=== PATIENT | female | born 1990 | race Caucasian/White ===

== ENCOUNTER 2016-09-24 21:30 | Emergency (ER) | payer SELFPAY ==
[~2016-09-24] VITALS: Ht 162.6 cm; Wt 81.6 kg
[2016-09-24 21:38] VITALS: BP 112/69
[2016-09-24] MEDS ORDERED: NAPROXEN 500 MG TABLET PO ONE (21:45)
[2016-09-24] MEDS ORDERED: HYDROcodone/APAP 5/325MG 1 TAB TABLET PO ONE (21:45)
[2016-09-24] MEDS ORDERED: NAPR500T8 PO (21:57)
[2016-09-24] MEDS ORDERED: ACET-704 PO (21:57)
--- NOTE | 2016-09-24 21:59 | PHYS DOC ---
Past Medical History Past Medical History: Anxiety, Asthma, Bipolar, Other Additional Past Medical Histor: ADHD; ODD; Disassociated Identity Disorder, PANIC ATTACKS,HYPOGLYCEMIA Past Surgical History: Other Additional Past Surgical Histo: left eye for lazy eye Alcohol Use: Occasionally Drug Use: Marijuana Adult General Chief Complaint Chief Complaint: LOWEREXTREMITY INJURY HPI HPI Patient is a 26 year old female with history of asthma anxiety and bipolar who presents today with moderate right lateral ankle pain that began today when she was walking down some steps and rolled her ankle medially. Patient denies falling. Review of Systems Review of Systems Constitutional: Denies fever or chills [] Eyes: Denies change in visual acuity, redness, or eye pain [] Musculoskeletal: moderate right lateral ankle Integument: Denies rash or skin lesions [] Neurologic: Denies headache, focal weakness or sensory changes [] Endocrine: Denies polyuria or polydipsia [] Current Medications Current Medications Current Medications Medications (Trade) Dose Ordered Sig/Norman Start Time Stop Time Status Last Admin Dose Admin Acetaminophen/ Hydrocodone Bitart (Lortab 5/325) 1 tab 1X ONCE 09/24/16 21:45 09/24/16 21:46 DC 09/24/16 22:04 1 TAB Naproxen (Naprosyn) 500 mg 1X ONCE 09/24/16 21:45 09/24/16 21:46 DC 09/24/16 22:04 500 MG Allergies Allergies Allergies Coded Allergies Type Severity Reaction Last Updated Verified Lim Allergy Intermediate rash 09/24/16 No ceftriaxone Allergy Intermediate hives 09/24/16 No strawberry Allergy Intermediate swelling 09/24/16 No egg yolk Allergy Unknown 09/24/16 No solis Allergy Unknown 09/24/16 No Physical Exam Physical Exam Constitutional: Well developed, well nourished, no acute distress, non-toxic appearance. [] HENT: Normocephalic, atraumatic, bilateral external ears normal, oropharynx moist, no oral exudates, nose normal. [] Skin: Warm, dry, no erythema, no rash. [] Back: No tenderness, no CVA tenderness. [] Extremities: Right ankle with mild amount of soft tissue swelling on the lateral aspect. Tenderness on palpation of the right lateral ankle. Slightly Limited range of motion to the right ankle due to pain. Patient able to flex and extend the right foot. +2 right pedal pulse. Cap refill less than 2 seconds the right lower extremity. Sensation intact to the right lower extremity. Neurologic: Alert and oriented X 3, normal motor function, normal sensory function, no focal deficits noted. [] Psychologic: Affect normal, judgement normal, mood normal. [] Current Patient Data Vital Signs Vital Signs Date Time Temp Pulse Resp B/P (MAP) Pulse Ox O2 Delivery O2 Flow Rate FiO2 09/24/16 21:38 97.8 88 18 100 Room Air 97.8 EKG EKG [] Radiology/Procedures Radiology/Procedures [] Course & Med Decision Making Course & Med Decision Making Pertinent Labs and Imaging studies reviewed. (See chart for details) Patient is in the ED with right ankle pain that began after she rolled her ankle walking down some steps. Right ankle x-rays interpreted by Dr. Aguillon and negative for any acute findings. Patient be discharged with instructions to ice and elevate the extremity. Jovany wrap applied to the ankle. Follow-up with orthopedic doctor in one week. Dragon Disclaimer Dragon Disclaimer This electronic medical record was generated, in whole or in part, using a voice recognition dictation system. Departure Departure Impression: Primary Impression: Ankle sprain Disposition: HOME, SELF-CARE Condition: STABLE Referrals: NO PCP (PCP) SB VANESSA MD follow in one week with the doctor provided Patient Instructions: Ankle Sprain Additional Instructions: You were was seen for right ankle sprain. Ice and elevate the extremity. Take the prescribed pain medicine as needed for pain. Wear the air cast or jovany wrap as tolerated. Follow-up with the provided orthopedic doctor in one week if pain continues. Scripts Naproxen (NAPROXEN) 500 Mg Tablet.dr 1 TAB PO BID, #60 TAB 2 Refills Prov: JERAMIE COOPER APRN 09/24/16 Acetaminophen With Codeine (TYLENOL WITH CODEINE #3 TABLET) 1 Each Tablet 1 TAB PO PRN Q6HRS Y for PAIN, #30 TAB Prov: JERAMIE COOPER APRN 09/24/16 Problem Qualifiers Primary Impression: Ankle sprain Encounter type: initial encounter Involved ligament of ankle: unspecified ligament Laterality: right Qualified Codes: S93.401A - Sprain of unspecified ligament of right ankle, initial encounter JERAMIE COOPER APRN Sep 24, 2016 21:59
--- NOTE | 2016-09-25 07:31 | RAD ---
Right ankle, 3 views, 09/24/2016: History: Ankle injury There is mild soft tissue swelling laterally. No fracture or dislocation is identified. IMPRESSION: No acute bony abnormality is detected.
== END 2016-09-24 22:11 | disposition home or self-care (01) ==
LOC: ER 21:30
DX: S93.401A Sprain of unspecified ligament of right ankle, initial encounter (principal); J45.909 Unspecified asthma, uncomplicated; F90.9 Attention-deficit hyperactivity disorder, unspecified type; X50.9XXA Other and unspecified overexertion or strenuous movements or postures, initial encounter; Y93.01 Activity, walking, marching and hiking; Y92.89 Other specified places as the place of occurrence of the external cause; Y99.8 Other external cause status
CPT/HCPCS: 73610; 99284-25

== ENCOUNTER 2017-07-04 19:25 | Emergency (ER) | payer SELFPAY ==
[2017-07-04] MEDS: IOHEXOL 300 MG/ML 100ML VIAL. IV (19:45)
[2017-07-04 19:53] LABS: ADD MAN DIFF? NO
[2017-07-04 19:56] LABS: BASO # 0.1 x10^3/uL (0.0-0.2); BASO % 0 % (0-3); EOS # 0.2 x10^3/uL (0.0-0.7); EOS % 2 % (0-3); HEMATOCRIT 41.9 % (36.0-47.0); HEMOGLOBIN 14.3 g/dL (12.0-15.5); LYMPH # 2.3 x10^3/uL (1.0-4.8); LYMPH % 19 % (24-48); MEAN CORPUSCULAR HEMOGLOBIN 30 pg (25-35); MEAN CORPUSCULAR HGB CONC 34 g/dL (31-37); MEAN CORPUSCULAR VOLUME 88 fL (79-100); MONO # 0.8 x10^3/uL (0.0-1.1); MONO % 6 % (0-9); NEUT # 9.1 x10^3uL (1.8-7.7); NEUT % 73 % (31-73); PLATELET COUNT 328 x10^3/uL (140-400); RED BLOOD COUNT 4.78 x10^6/uL (3.50-5.40); RED CELL DISTRIBUTION WIDTH 14.4 % (11.5-14.5); WHITE BLOOD COUNT 12.4 x10^3/uL (4.0-11.0)
[2017-07-04] MEDS ORDERED: CONTRAST GIVEN MC (20:00)
[2017-07-04] MEDS: fentaNYL PF VIAL 100 MCG/2 ML VIAL IV (20:04)
[2017-07-04 20:05] LABS: ANION GAP 8 (6-14); BLOOD UREA NITROGEN 9 mg/dL (7-20); BUN/CREATININE RATIO 11 (6-20); CALCIUM 9.3 mg/dL (8.5-10.1); CARBON DIOXIDE 27 mmol/L (21-32); CHLORIDE 103 mmol/L (98-107); CREATININE 0.8 mg/dL (0.6-1.0); GFR 86.7; GLUCOSE 92 mg/dL (70-99); POTASSIUM 3.7 mmol/L (3.5-5.1); PROTHROMBIN TIME PATIENT 12.8 SEC (11.7-14.0); SODIUM 138 mmol/L (136-145)
[2017-07-04 20:06] LABS: PARTIAL THROMBOPLASTIN TIME 27 SEC (24-38)
[2017-07-04 20:07] LABS: ETHANOL < 10 mg/dL (0-10)
[2017-07-04 20:10] LABS: ALBUMIN 4.1 g/dL (3.4-5.0); ALK PHOS 105 U/L (46-116); ALT (SGPT) 15 U/L (14-59); AST (SGOT) 13 U/L (15-37); LIPASE 123 U/L (73-393); MAGNESIUM 2.1 mg/dL (1.8-2.4); TOTAL BILIRUBIN 0.2 mg/dL (0.2-1.0); TOTAL PROTEIN 8.2 g/dL (6.4-8.2)
[2017-07-04] MEDS ORDERED: ONDANSETRON PF 4 MG/2 ML VIAL. (20:33)
[2017-07-04] MEDS: ONDANSETRON PF 4 MG/2 ML VIAL. IV (20:35)
[2017-07-04] MEDS: DIPHTH,PERTUSS(ACELL),TET TOX 0.5 ML DISP.SYRIN. VAX IM (21:01)
== END 2017-07-04 22:23 | disposition home or self-care (01) ==
LOC: ER 19:25
DX: S16.1XXA Strain of muscle, fascia and tendon at neck level, initial encounter (principal); S83.91XA Sprain of unspecified site of right knee, initial encounter; S93.401A Sprain of unspecified ligament of right ankle, initial encounter; S70.211A Abrasion, right hip, initial encounter; S09.90XA Unspecified injury of head, initial encounter; M54.5 Low back pain; M54.6 Pain in thoracic spine; F41.0 Panic disorder [episodic paroxysmal anxiety]; J45.909 Unspecified asthma, uncomplicated; F31.9 Bipolar disorder, unspecified; F90.9 Attention-deficit hyperactivity disorder, unspecified type; F12.10 Cannabis abuse, uncomplicated; F91.3 Oppositional defiant disorder; Z88.1 Allergy status to other antibiotic agents; Z91.012 Allergy to eggs; Z91.018 Allergy to other foods; V47.5XXA Car driver injured in collision with fixed or stationary object in traffic accident, initial encounter; Y93.I9 Activity, other involving external motion; Y92.410 Unspecified street and highway as the place of occurrence of the external cause; Y99.8 Other external cause status
CPT/HCPCS: 36415; 70450; 71260; 72125; 73562; 73610; 74177; 80053; 83690; 83735; 85025; 85610; 85730; 86850; 86900; 86901; 90471; 90715; 96374; 96375; 99285-25; G0480; J2405; J3010; Q9967

== ENCOUNTER 2018-01-26 21:00 | Emergency (ER) | payer SELFPAY ==
[~2018-01-26] VITALS: Ht 165.1 cm; Wt 88.9 kg
[~2018-01-26 21:00] MED LIST: ACET-704 PO; HYDR-971 PO; NAPR500T8 PO; ONDA4TAB10 PO
[2018-01-26 21:50] LABS: BILIRUBIN,URINE NEGATIVE (NEG); CLARITY,URINE CLOUDY; COLOR,URINE YELLOW; NITRITE,URINE NEGATIVE (NEG); PROTEIN,URINE NEGATIVE (NEG-TRACE)
[2018-01-26 21:59] LABS: BACTERIA,URINE MODERATE /HPF (0-FEW); RBC,URINE 0 /HPF (0-2); SQUAMOUS EPITHELIAL CELL,UR MANY /LPF
--- NOTE | 2018-01-26 22:22 | PHYS DOC ---
Past Medical History Past Medical History: Anxiety, Asthma, Bipolar, Other Additional Past Medical Histor: ADHD; ODD; Disassociated Identity Disorder, PANIC ATTACKS,HYPOGLYCEMIA Past Surgical History: Other Additional Past Surgical Histo: left eye for lazy eye Alcohol Use: Occasionally Drug Use: Marijuana Adult General Chief Complaint Chief Complaint: DIZZY/LIGHT HEADED HPI HPI Patient is a 27 year old female who presents with complaints of nausea and vomiting x1 week. Pt reports dizziness with position changes today, described as room spinning sensation if she changes positions too quickly. Pt reports 3 episodes of vomiting in the last 24 hours. She denies any chest pain, abdominal pain, or diarrhea. States that she was constipated earlier this week but had a normal BM at 1400 today. She denies any dysuria, hematuria, increased urine frequency, vaginal bleeding, vaginal itching, or irregular vaginal discharge. Her LMP was 2 weeks ago and she denies any chance of , states she is not sexually active. Review of Systems Review of Systems Constitutional: Denies fever or chills [] Eyes: Denies change in visual acuity, redness, or eye pain [] HENT: Denies nasal congestion or sore throat [] Respiratory: Denies cough, wheezing, or shortness of breath [] Cardiovascular: Denies chest pain GI: Reports left abdominal soreness, nausea and vomiting; denies bloody stools or diarrhea [] : Denies dysuria or hematuria [] Musculoskeletal: Denies back pain or joint pain [] Integument: Denies rash or skin lesions [] Neurologic: Denies headache or focal weakness, reports dizziness with position changes All other systems were reviewed and found to be within normal limits, except as documented in this note. Allergies Allergies Allergies Coded Allergies Type Severity Reaction Last Updated Verified Lim Allergy Intermediate rash 09/24/16 No ceftriaxone Allergy Intermediate hives 09/24/16 No strawberry Allergy Intermediate swelling 09/24/16 No egg yolk Allergy Unknown 09/24/16 No solis Allergy Unknown 09/24/16 No Physical Exam Physical Exam Constitutional: Well developed, well nourished, no acute distress, non-toxic appearance, poor hygiene. [] HENT: Normocephalic, atraumatic, bilateral external ears normal, dry mucous membranes, no oral exudates, nose normal. [] Eyes: PERRLA, EOMI, conjunctiva normal, no discharge, no nystagmus. [] Neck: Normal range of motion, no tenderness, supple, no stridor. [] Cardiovascular:Heart rate regular rhythm, no murmur [] Lungs & Thorax: Bilateral breath sounds clear to auscultation [] Abdomen: Bowel sounds normal, soft, no tenderness, no masses, no pulsatile masses. [] Skin: Warm, dry, no erythema, no rash. [] Extremities: No cyanosis, no clubbing, ROM intact, no edema. [] Neurologic: Alert and oriented X 3, normal motor function, normal sensory function, no focal deficits noted. [] Psychologic: Affect normal, judgement normal, mood normal. [] Current Patient Data Vital Signs Vital Signs Date Time Temp Pulse Resp B/P (MAP) Pulse Ox O2 Delivery O2 Flow Rate FiO2 01/26/18 21:30 98.1 98 18 125/78 (94) 98 Room Air 98.1 Lab Values Laboratory Tests Test 01/26/18 21:27 01/26/18 21:42 01/26/18 22:15 Urine Collection Type Unknown Urine Color Yellow Urine Clarity Cloudy Urine pH 6.0 Urine Specific [place] 1.025 Urine Protein Negative mg/dL (NEG-TRACE) Urine Glucose (UA) Negative mg/dL (NEG) Urine Ketones (Stick) Negative mg/dL (NEG) Urine Blood Negative (NEG) Urine Nitrite Negative (NEG) Urine Bilirubin Negative (NEG) Urine Urobilinogen Dipstick 1.0 mg/dL (0.2 mg/dL) Urine Leukocyte Esterase Moderate (NEG) Urine RBC 0 /HPF (0-2) Urine WBC 5-10 /HPF (0-4) Urine Squamous Epithelial Cells Many /LPF Urine Bacteria Moderate /HPF (0-FEW) Urine Mucus Marked /LPF POC Urine HCG, Qualitative Hcg negative (Negative) White Blood Count 11.6 x10^3/uL (4.0-11.0) H Red Blood Count 4.21 x10^6/uL (3.50-5.40) Hemoglobin 13.1 g/dL (12.0-15.5) Hematocrit 37.8 % (36.0-47.0) Mean Corpuscular Volume 90 fL (79-100) Mean Corpuscular Hemoglobin 31 pg (25-35) Mean Corpuscular Hemoglobin Concent 35 g/dL (31-37) Red Cell Distribution Width 13.9 % (11.5-14.5) Platelet Count 283 x10^3/uL (140-400) Neutrophils (%) (Auto) 74 % (31-73) H Lymphocytes (%) (Auto) 18 % (24-48) L Monocytes (%) (Auto) 6 % (0-9) Eosinophils (%) (Auto) 2 % (0-3) Basophils (%) (Auto) 0 % (0-3) Neutrophils # (Auto) 8.6 x10^3uL (1.8-7.7) H Lymphocytes # (Auto) 2.1 x10^3/uL (1.0-4.8) Monocytes # (Auto) 0.7 x10^3/uL (0.0-1.1) Eosinophils # (Auto) 0.2 x10^3/uL (0.0-0.7) Basophils # (Auto) 0.0 x10^3/uL (0.0-0.2) Sodium Level 140 mmol/L (136-145) Potassium Level 3.5 mmol/L (3.5-5.1) Chloride Level 104 mmol/L (98-107) Carbon Dioxide Level 27 mmol/L (21-32) Anion Gap 9 (6-14) Blood Urea Nitrogen 10 mg/dL (7-20) Creatinine 0.7 mg/dL (0.6-1.0) Estimated GFR (Cockcroft-Gault) 101.1 BUN/Creatinine Ratio 14 (6-20) Glucose Level 137 mg/dL (70-99) H Calcium Level 9.5 mg/dL (8.5-10.1) Total Bilirubin Pending Aspartate Amino Transferase (AST) Pending Alanine Aminotransferase (ALT) Pending Alkaline Phosphatase Pending Total Protein Pending Albumin Pending Albumin/Globulin Ratio Pending Laboratory Tests 01/26/18 22:15 Laboratory Tests 01/26/18 22:15 EKG EKG [] Radiology/Procedures Radiology/Procedures [] Course & Med Decision Making Course & Med Decision Making Pertinent Labs and Imaging studies reviewed. (See chart for details) Dx: UTI, nausea, vomiting, UA concerning for UTI, CBC and CMP unremarkable. Prescription written for bactrim ds and zofran, increase fluids, avoid bladder irritants. Patient verbalized an understanding of home care, medications, follow-up, and return to ED instructions and was in agreement with the plan of care. [] Dragon Disclaimer Dragon Disclaimer This electronic medical record was generated, in whole or in part, using a voice recognition dictation system. Departure Departure Impression: Primary Impression: UTI (urinary tract infection) Additional Impression: Nausea & vomiting Disposition: 01 HOME, SELF-CARE Condition: STABLE Referrals: NO PCP (PCP) Patient Instructions: Nausea and Vomiting, [id number], Urinary Tract Infection, [id number] Additional Instructions: Fill prescriptions and use as directed. Clear fluids for the first 24 hours, then bland diet like bananas, rice, toast, and applesauce, then advance diet as tolerated. Avoid carbonated, caffeinated, and spicy foods as they irritate your bladder. Follow up with PCP next week Return to the ER if your symptoms worsen. Scripts Ondansetron (ONDANSETRON ODT) 4 Mg Tab.rapdis 1 TAB PO PRN Q6-8HRS, #16 TAB 0 Refills Prov: NIRANJAN ROJAS APRN 01/26/18 Sulfamethoxazole/Trimethoprim (BACTRIM DS TABLET) 1 Each Tablet 1 TAB PO BID for 5 Days, #10 TAB 0 Refills Prov: NIRANJAN ROJAS APRN 01/26/18 Problem Qualifiers Primary Impression: UTI (urinary tract infection) Urinary tract infection type: site unspecified Hematuria presence: without hematuria Qualified Codes: N39.0 - Urinary tract infection, site not specified Additional Impression: Nausea & vomiting Vomiting type: unspecified Vomiting Intractability: non-intractable Qualified Codes: R11.2 - Nausea with vomiting, unspecified NIRANJAN ROJAS APRN Jan 26, 2018 22:22
[2018-01-26 22:25] LABS: BASO % 0 % (0-3); EOS # 0.2 x10^3/uL (0.0-0.7); EOS % 2 % (0-3); HEMATOCRIT 37.8 % (36.0-47.0); HEMOGLOBIN 13.1 g/dL (12.0-15.5); LYMPH # 2.1 x10^3/uL (1.0-4.8); LYMPH % 18 % (24-48); MEAN CORPUSCULAR HEMOGLOBIN 31 pg (25-35); MEAN CORPUSCULAR HGB CONC 35 g/dL (31-37); MEAN CORPUSCULAR VOLUME 90 fL (79-100); MONO # 0.7 x10^3/uL (0.0-1.1); MONO % 6 % (0-9); NEUT # 8.6 x10^3uL (1.8-7.7); NEUT % 74 % (31-73); PLATELET COUNT 283 x10^3/uL (140-400); RED BLOOD COUNT 4.21 x10^6/uL (3.50-5.40); RED CELL DISTRIBUTION WIDTH 13.9 % (11.5-14.5); WHITE BLOOD COUNT 11.6 x10^3/uL (4.0-11.0)
[2018-01-26 22:35] LABS: CALCIUM 9.5 mg/dL (8.5-10.1); CREATININE 0.7 mg/dL (0.6-1.0); GFR 101.1; POTASSIUM 3.5 mmol/L (3.5-5.1)
[2018-01-26 22:42] LABS: ALBUMIN 3.5 g/dL (3.4-5.0); TOTAL BILIRUBIN 0.4 mg/dL (0.2-1.0); TOTAL PROTEIN 7.1 g/dL (6.4-8.2)
[2018-01-26] MEDS ORDERED: ONDA4TAB12 PO (22:48)
[2018-01-26] MEDS ORDERED: SULF1TAB24 PO (22:48)
[2018-01-26 23:00] VITALS: BP 109/70
== END 2018-01-26 23:03 | disposition home or self-care (01) ==
LOC: ER 21:00
DX: N39.0 Urinary tract infection, site not specified (principal); R11.2 Nausea with vomiting, unspecified; F41.9 Anxiety disorder, unspecified; F31.9 Bipolar disorder, unspecified; J45.909 Unspecified asthma, uncomplicated; F90.9 Attention-deficit hyperactivity disorder, unspecified type; Z88.1 Allergy status to other antibiotic agents; Z91.012 Allergy to eggs; Z91.018 Allergy to other foods
CPT/HCPCS: 36415; 80053; 81001; 81025; 85025; 87086; 99284

== ENCOUNTER 2018-08-19 09:35 | Emergency (ER) | payer OTHER ==
[~2018-08-19] VITALS: Ht 165.1 cm; Wt 88.9 kg
[~2018-08-19 09:35] MED LIST changes: +HYDR-3164 PO; -HYDR-971 PO; +ONDA4TAB12 PO; +SULF1TAB24 PO
[2018-08-19 10:13] VITALS: BP 120/67
--- NOTE | 2018-08-19 11:07 | RAD ---
WRIST 3V LEFT History: CANS FELL ON WRIST PAIN, SWELLING NEAR BASE OF 1ST METACARPAL Comparison: None. Findings: 3 views of the left wrist are submitted. No acute fracture or dislocation is identified. Impression: 1. No acute osseous abnormality is identified. Electronically signed by: Kodak Jarrell MD (08/19/2018 11:04 AM) [id number]
--- NOTE | 2018-08-19 11:25 | PHYS DOC ---
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 She states that the injury happened yesterday but she develop swelling overnight. She wrapped it with an Jovany wrap. She states that did give her some relief. She is able to move her wrist and does have good pulses and sensation. ([employer]) Review of Systems Review of Systems Constitutional: Denies fever or chills [] Respiratory: Denies cough or shortness of breath [] Cardiovascular: No additional information not addressed in HPI [] GI: Denies abdominal pain, nausea, vomiting, bloody stools or diarrhea [] : Denies dysuria or hematuria [] Musculoskeletal: See history of present illness Integument: Denies rash or skin lesions [] Neurologic: Denies headache, focal weakness or sensory changes [] Endocrine: Denies polyuria or polydipsia [] All other systems were reviewed and found to be within normal limits, except as documented in this note. ([employer]) Allergies Allergies Allergies Coded Allergies Type Severity Reaction Last Updated Verified Lim Allergy Intermediate rash 09/24/16 No ceftriaxone Allergy Intermediate hives 09/24/16 No strawberry Allergy Intermediate swelling 09/24/16 No egg yolk Allergy Unknown 09/24/16 No solis Allergy Unknown 09/24/16 No (DARYL TORRES MD) Physical Exam Physical Exam Constitutional: Well developed, well nourished, no acute distress, non-toxic appearance. [] Cardiovascular:Heart rate regular rhythm, no murmur [] Lungs & Thorax: Bilateral breath sounds clear to auscultation [] Abdomen: Bowel sounds normal, soft, no tenderness, no masses, no pulsatile masses. [] Skin: Warm, dry, no erythema, no rash. [] Back: No tenderness, no CVA tenderness. [] Extremities: tenderness to left wrist with mild bruising noted, no cyanosis, no clubbing, ROM intact, no edema, pulses and sensation are intact. [] Neurologic: Alert and oriented X 3, normal motor function, normal sensory function, no focal deficits noted. [] Psychologic: Affect normal, judgement normal, mood normal. [] (JAYCE NICOLE APRN) Current Patient Data Vital Signs Vital Signs Date Time Temp Pulse Resp B/P (MAP) Pulse Ox O2 Delivery O2 Flow Rate FiO2 08/19/18 10:13 98.3 86 18 120/67 (84) 98 Room Air 98.3 (DARYL TORRES MD) EKG EKG [] (JAYCE NICOLE APRN) Radiology/Procedures Radiology/Procedures []PATIENT: ZULMA MADISON LACCOUNT: [id number]#: [id number] : 1990 LOCATION: ER AGE: 28 SEX: F EXAM STATUS: REG ER ORD. PHYSICIAN: JAYCE NICOLE APRN REASON: hit by falling cans at work PROCEDURE: WRIST 3V LEFT WRIST 3V LEFT History: CANS FELL ON WRIST PAIN, SWELLING NEAR BASE OF 1ST METACARPAL Comparison: None. Findings: 3 views of the left wrist are submitted. No acute fracture or dislocation is identified. Impression: 1. No acute osseous abnormality is identified. Electronically signed by: Kane Sears MD (08/19/2018 11:04 AM) [id number] DICTATED and SIGNED BY: KANE SEARS MD DATE: 08/19/18 1104 (JAYCE NICOLE APRN) Course & Med Decision Making Course & Med Decision Making Pertinent Labs and Imaging studies reviewed. (See chart for details) [] (JAYCE NICOLE APRN) Course & Med Decision Making Staff Physician Addendum: I was working in the ER during the course of this patient's visit. I was available for consultation as needed, but I was not directly involved in the care of this patient. (DARYL TORRES MD) Dragon Disclaimer Dragon Disclaimer This electronic medical record was generated, in whole or in part, using a voice recognition dictation system. (JAYCE NICOLE APRN) Departure Departure Impression: Primary Impression: Contusion Disposition: HOME, SELF-CARE Condition: STABLE Referrals: NO PCP (PCP) Patient Instructions: Contusion Additional Instructions: You may use ice packs to help with swelling. Take ibuprofen or Tylenol for pain. Follow-up with your primary care provider in 4 days if not improving or return to the emergency department if worsening. JAYCE NICOLE APRN Aug 19, 2018 11:25 DARYL TORRES MD August 21, 2018 00:06
== END 2018-08-19 11:28 | disposition home or self-care (01) ==
LOC: ER 09:35
DX: S60.212A Contusion of left wrist, initial encounter (principal); F41.9 Anxiety disorder, unspecified; J45.909 Unspecified asthma, uncomplicated; F31.9 Bipolar disorder, unspecified; Z88.1 Allergy status to other antibiotic agents; Z91.012 Allergy to eggs; Z91.018 Allergy to other foods; W18.09XA Striking against other object with subsequent fall, initial encounter; Y93.89 Activity, other specified; Y92.89 Other specified places as the place of occurrence of the external cause; Y99.0 Civilian activity done for income or pay
CPT/HCPCS: 73110; 99284

== ENCOUNTER 2018-09-02 21:37 | Emergency (ER) | payer OTHER, SELFPAY ==
[~2018-09-02] VITALS: Ht 165.1 cm; Wt 87.5 kg
[2018-09-02] MEDS ORDERED: fentaNYL PF VIAL 100 MCG/2 ML VIAL ONE (22:17)
[2018-09-02 22:21] LABS: BASO # 0.1 x10^3/uL (0.0-0.2); BASO % 1 % (0-3); EOS # 0.2 x10^3/uL (0.0-0.7); EOS % 2 % (0-3); HEMOGLOBIN 14.1 g/dL (12.0-15.5); LYMPH # 2.7 x10^3/uL (1.0-4.8); LYMPH % 24 % (24-48); MEAN CORPUSCULAR HEMOGLOBIN 31 pg (25-35); MEAN CORPUSCULAR HGB CONC 34 g/dL (31-37); MEAN CORPUSCULAR VOLUME 91 fL (79-100); MONO % 9 % (0-9); NEUT # 7.2 x10^3uL (1.8-7.7); NEUT % 65 % (31-73); PLATELET COUNT 311 x10^3/uL (140-400); RED BLOOD COUNT 4.62 x10^6/uL (3.50-5.40); RED CELL DISTRIBUTION WIDTH 14.6 % (11.5-14.5); WHITE BLOOD COUNT 11.2 x10^3/uL (4.0-11.0)
[2018-09-02] MEDS ORDERED: fentaNYL PF VIAL 100 MCG/2 ML VIAL IV ONE (22:30)
[2018-09-02 22:31] LABS: PROTHROMBIN TIME PATIENT 11.9 SEC (11.7-14.0)
[2018-09-02 22:36] LABS: CALCIUM 9.4 mg/dL (8.5-10.1); CREATININE 0.8 mg/dL (0.6-1.0); POTASSIUM 3.9 mmol/L (3.5-5.1)
[2018-09-02 22:41] LABS: ALBUMIN/GLOBULIN RATIO 1.1 (1.0-1.7); TOTAL BILIRUBIN 0.2 mg/dL (0.2-1.0); TOTAL PROTEIN 7.5 g/dL (6.4-8.2)
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
[2018-09-02] MEDS ORDERED: CONTRAST GIVEN. MC PRN (22:45)
[2018-09-02 22:47] LABS: BILIRUBIN,URINE NEGATIVE (NEG); CLARITY,URINE CLEAR; COLOR,URINE YELLOW; NITRITE,URINE NEGATIVE (NEG); PROTEIN,URINE NEGATIVE (NEG-TRACE); UROBILINOGEN,URINE 0.2 mg/dL (0.2 mg/dL)
[2018-09-02 22:50] LABS: BARBITURATES NEG (NEG); BENZODIAZEPINES NEG (NEG); CANNABINOIDS NEG (NEG); COCAINE NEG (NEG); METHADONE NEG (NEG); OPIATES NEG (NEG); PHENCYCLIDINE NEG (NEG); RBC,URINE 0 /HPF (0-2); WBC,URINE OCC /HPF (0-4)
[2018-09-02 22:51] LABS: BACTERIA,URINE 0 /HPF (0-FEW)
[2018-09-02 22:52] LABS: AMPHETAMINE/METHAMPHETAMINE NEG (NEG)
[2018-09-02] MEDS ORDERED: IOHEXOL 300 MG/ML 100ML VIAL. IV ONE (23:00)
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
[2018-09-02] MEDS ORDERED: MORPHINE SULFATE 4 MG/ML VIAL. ONE (23:41)
--- NOTE | 2018-09-02 23:53 | RAD ---
AP portable chest radiograph 09/02/2018 Clinical History: Chest pain. Trauma.. An AP supine portable digital radiograph of the chest was obtained. Comparison study is dated 06/15/2008. The cardiac and mediastinal silhouettes are within normal limits in size and configuration. No acute pulmonary infiltrate is seen. No pleural effusion or pneumothorax is noted. The osseous structures are grossly intact. Impression: No acute abnormality is seen. Electronically signed by: Salazar Ly MD (09/02/2018 11:50 PM) [facility]
[2018-09-03] MEDS ORDERED: MORPHINE SULFATE 4 MG/ML VIAL. IV ONE
[2018-09-03] MEDS ORDERED: ONDANSETRON PF 4 MG/2 ML VIAL. IV ONE
[2018-09-03] MEDS ORDERED: HYDR-3164 PO (00:37)
[2018-09-03 01:30] VITALS: BP 125/66
[2018-09-03] MEDS ORDERED: BACITRACIN TOPICAL OINT 14GM TUBE. TP ONE (01:30)
== END 2018-09-03 01:45 | disposition home or self-care (01) ==
LOC: ER 21:37
DX: S09.8XXA Other specified injuries of head, initial encounter (principal); M54.2 Cervicalgia; M54.5 Low back pain; M25.569 Pain in unspecified knee; F41.9 Anxiety disorder, unspecified; J45.909 Unspecified asthma, uncomplicated; F31.9 Bipolar disorder, unspecified; F90.9 Attention-deficit hyperactivity disorder, unspecified type; F91.3 Oppositional defiant disorder; Z88.1 Allergy status to other antibiotic agents; Z91.012 Allergy to eggs; Z91.018 Allergy to other foods; V29.9XXA Motorcycle rider (driver) (passenger) injured in unspecified traffic accident, initial encounter; Y93.I9 Activity, other involving external motion; Y92.89 Other specified places as the place of occurrence of the external cause; Y99.8 Other external cause status
CPT/HCPCS: 36415; 70450; 71045; 72125; 74177; 80053; 80307; 81001; 81025; 84702; 85025; 85610; 87086; 96374; 96375; 99285; G0480; J2270; J2405; J3010; Q9967

== ENCOUNTER 2019-07-13 18:43 | Emergency (ER) | payer SELFPAY ==
[~2019-07-13] VITALS: Ht 165.1 cm; Wt 87.9 kg
[2019-07-13 19:10] VITALS: BP 132/74
[2019-07-13] MEDS ORDERED: BUPIVACAINE MPF 0.25% 10 ML VIAL. IJ ONE (19:45)
[2019-07-13] MEDS ORDERED: PENI500T PO (19:58)
--- NOTE | 2019-07-13 19:59 | PHYS DOC ---
Past Medical History Past Medical History: Anxiety, Asthma, Bipolar, Other Additional Past Medical Histor: ADHD; ODD; Disassociated Identity Disorder,PANIC ATTACKS,HYPOGLYCEMIA (GODFREY QUINTEROS APRN) Past Surgical History: Other Additional Past Surgical Histo: left eye for OPTIC NERVE (GODFREY QUINTEROS APRN) Smoking Status: Current Every Day Smoker Alcohol Use: Occasionally Drug Use: Marijuana (GODFREY QUINTEROS APRN) Attending Signature I have participated in the care of this patient and I have reviewed and agree with all pertinent clinical information above including history, exam, and recommendations. (HAYDER ADHIKARI MD) Adult General Chief Complaint Chief Complaint: DENTAL PROBLEM HPI HPI Patient is a 29 year old [female with dental pain. Patient states she has had several broken teeth for years, states 1 of her teeth on her right upper jaw has been broken for a while and has been poking into her cheek causing her some discomfort, however she is a more discomfort on her right lower molars. States she has been taking some ibuprofen, and also had to started taking some naproxen as well. Last she had taken 1-220 mg naproxen at approximately 4 PM today. States she does not have a dentist, however she had just gotten insurance and she had tried to make an appointment for Sunday. Denies additional complaints (GODFREY QUINTEROS APRN) Review of Systems Review of Systems Constitutional: Denies fever or chills [] HENT: Denies nasal congestion or sore throat states pain to right cheek where tooth is looking to a, right lower posterior molars [] Respiratory: Denies cough or shortness of breath [] Denies additional complaints All other systems were reviewed and found to be within normal limits, except as documented in this note. (GODFREY QUINTEROS APRN) Current Medications Current Medications Current Medications Medications (Trade) Dose Ordered Sig/Norman Start Time Stop Time Status Last Admin Dose Admin Bupivacaine HCl (Sensorcaine-Mpf 0.25%) 10 ml 1X ONCE 07/13/19 19:45 07/13/19 19:46 DC (HAYDER ADHIKARI MD) Allergies Allergies Allergies Coded Allergies Type Severity Reaction Last Updated Verified Lim Allergy Intermediate rash 09/24/16 No ceftriaxone Allergy Intermediate hives 09/24/16 No egg yolk Allergy Intermediate 09/02/18 No solis Allergy Intermediate 09/02/18 No strawberry Allergy Intermediate swelling 09/24/16 No (HAYDER ADHIKARI MD) Physical Exam Physical Exam Constitutional: Well developed, well nourished, no acute distress, non-toxic appearance. [] HENT: Normocephalic, atraumatic, oropharynx moist, no oral exudates, extensive dental decay throughout the mouth. Tooth #4 noted fracture, appears to be rubbing against gum. Extensive caries noted between tooth 30, 31, 18, 14. With many teeth broken at the gumline. No dental swelling, no abscess noted along gums. Oropharynx moist [] Cardiovascular:Heart rate regular rhythm, no murmur [] [] Skin: Warm, dry, no erythema, no rash. [] (GODFREY QUINTEROS APRN) Current Patient Data Vital Signs Vital Signs Date Time Temp Pulse Resp B/P (MAP) Pulse Ox O2 Delivery O2 Flow Rate FiO2 07/13/19 19:10 97.3 88 20 132/74 (93) 96 Room Air 97.3 (HAYDER ADHIKARI MD) EKG EKG [] (GODFREY QUINTEROS APRN) Radiology/Procedures Radiology/Procedures [] (GODFREY QUINTEROS APRN) Course & Med Decision Making Course & Med Decision Making Pertinent Labs and Imaging studies reviewed. (See chart for details) [Discussed plan with patient, with importance of taking antibiotics as prescribed. Will provide prescription. Discussed importance of taking anti-inflammatories and pain medications for discomfort. Discussed importance of following up with dentist. Patient states she will follow-up on Sunday. Offered dental block, patient in agreement to this. Will perform dental block here. Patient reports she had a reaction to ceftriaxone when she was on, has not had it for several years. States she has a penicillin has had no reactions to this. Also reports no reaction to any anesthetics in the past. Dental block performed using 0.25% bupivacaine. 3 mL injected into right mandible space, well-tolerated by patient. With noted relief following procedure (GODFREY QUINTEROS APRN) Dragon Disclaimer Dragon Disclaimer This electronic medical record was generated, in whole or in part, using a voice recognition dictation system. (GODFREY QUINTEROS APRN) Departure Departure Impression: Primary Impression: Dental caries Disposition: HOME, SELF-CARE Condition: STABLE Referrals: NO PCP (PCP) Patient Instructions: Dental Caries Additional Instructions: As we discussed, you may take 1 of your Aleve every 6 hours, or 2 every 12 hours. You may also take Tylenol with this, 500 to 1000 mg every 6 hours. Take the antibiotic as prescribed until it is completed, even if you do start to feel better. As we discussed, get into see a dentist in the next couple days if possible. Scripts Penicillin V Potassium (PENICILLIN V POTASSIUM) 500 Mg Tablet 500 MG PO TID for 10 Days, #30 TAB 0 Refills Prov: GODFREY QUINTEROS APRN 07/13/19 GODFREY QUINTEROS APRN Jul 13, 2019 19:58 HAYDER ADHIKARI MD Jul 13, 2019 23:16
== END 2019-07-13 20:06 | disposition home or self-care (01) ==
LOC: ER 18:43
DX: K02.9 Dental caries, unspecified (principal); K08.89 Other specified disorders of teeth and supporting structures; F41.9 Anxiety disorder, unspecified; J45.909 Unspecified asthma, uncomplicated; F31.9 Bipolar disorder, unspecified; F90.9 Attention-deficit hyperactivity disorder, unspecified type; F91.3 Oppositional defiant disorder; F17.200 Nicotine dependence, unspecified, uncomplicated; F12.90 Cannabis use, unspecified, uncomplicated; Z98.890 Other specified postprocedural states
CPT/HCPCS: 64400; 99284